=== PATIENT | female | born 1935 | race Caucasian/White ===

== ENCOUNTER → 2020-12-17 | Outpatient (CLI) | payer MEDICARE ==
--- NOTE | 2020-12-17 10:44 | RAD ---
PA and lateral views of the chest. Comparison: None. Indication: Increasing shortness of breath Findings: Sternotomy wires and CABG clips are identified. The heart size is enlarged but stable. Small bibasila r effusions with some pseudotumor appearing fluid on the right minor fissure. There is pulmonary vasc ular congestion. Degenerative changes identified with a vertebral plana deformity of a lower thoracic vertebral body. Impression: 1. Findings suggest CHF. Electronically signed by: Michael Serra MD (12/17/2020 10:42 AM) [id number]
--- NOTE | 2020-12-17 13:38 | RAD ---
AP pelvis to include AP and lateral radiographs of the left hip 09/18/2020 CLINICAL HISTORY: Left hip pain. AP digital radiograph of the pelvis and both hips was obtained. AP and lateral digital radiographs le ft hip were obtained. There is diffuse osteopenia the visualized bony structures. No pelvic bone frac ture is seen. Both hips are intact. Specifically no fracture or dislocation of the left hip is seen. Mild to moderate degenerative changes are seen involving both hips. Mild to moderate degenerative francine nges are seen involving both SI joints. Calcifications are seen within the pelvis consistent with phl eboliths. IMPRESSION: Degenerative changes are seen as discussed above. No acute osseous abnormality is identif ied. Electronically signed by: Garret Dickerson MD (12/17/2020 1:36 PM) [id number]
== END ==
LOC: RAD 09:44
PROVIDERS: ATTEND Physician Assistant
DX: M16.0 Bilateral primary osteoarthritis of hip (principal); M46.1 Sacroiliitis, not elsewhere classified; M85.88 Other specified disorders of bone density and structure, other site; R06.02 Shortness of breath; I51.7 Cardiomegaly; R09.89 Other specified symptoms and signs involving the circulatory and respiratory systems; M43.8X4 Other specified deforming dorsopathies, thoracic region; M47.814 Spondylosis without myelopathy or radiculopathy, thoracic region
CPT/HCPCS: 71046; 73502

== ENCOUNTER 2020-12-18 08:15 | Emergency (ER) | payer MEDICARE ==
[~2020-12-18] VITALS: Ht 152.4 cm; Wt 75.6 kg
--- NOTE | 2020-12-18 08:19 | PHYS DOC ---
Past History Past Medical History: GERD, High Cholesterol, Heart Disease, Hypothyroid, Other (Osteoporosis) Adult General Chief Complaint Chief Complaint: SHORTNESS OF BREATH HPI HPI Patient is an 85-year-old female who presents from home via POV for shortness of breath. This is an acute on chronic issue. She is typically on 4 L nasal cannula daily, states she has had no increased oxygen requirements at home but feels she is more short of breath with exertion which is new for her. This has been worsening gradually over past 1 week without any known inciting event, trauma or ingestion. Patient cites that she has to stop several times to catch her breath when ambulating from living room to bathroom which is unusual for her. No fever, lightheadedness, chest pain, productive cough, abdominal pain, urinary symptoms, changes in motor or sensory function, no neurologic deficits reported. She has a right sided pigtail chest tube in place, states it has been there for "a while". It is not been drained" several weeks". She is unsure what the source of her recurrent pleural effusion is. She recently relocated to our area from [place] to live with her son. Son and qbbnuxcn-va-iux accompany her today, states she recently establish care with a local primary care provider but have yet to establish with local cardiology and pulmonology services. They are unsure of entire past medical history. 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 They do bring her medication list, it appears patient is being treated for high blood pressure, high cholesterol, she is on 75 mg clopidogrel daily Review of Systems Review of Systems Fourteen body systems of review of systems have been reviewed. See HPI for pertinent positives and negative responses, other laguna all other systems are negative, non-pertinent or non-contributory Physical Exam Physical Exam Constitutional: Well developed, well nourished, no acute distress, non-toxic appearance. HENT: Normocephalic, atraumatic, bilateral external ears normal, oropharynx moist, no oral exudates, nose normal. Eyes: PERRLA, EOMI, conjunctiva normal, no discharge. Neck: Normal range of motion, no tenderness, supple, no stridor. Cardiovascular: Heart rate regular, sinus rhythm, no murmurs rubs or gallops Lungs & Thorax: Bilateral breath sounds clear to auscultation Abdomen: Bowel sounds normal, soft, no tenderness, no masses, no pulsatile masses. Nonsurgical abdomen, no peritoneal signs Skin: Warm, dry, no erythema, no rash. Back: No tenderness, no CVA tenderness. Extremities: No tenderness, no cyanosis, no clubbing, ROM intact, no edema. Neurologic: Alert and oriented X 3, grossly normal motor & sensory function, no focal deficits noted. Psychologic: Affect normal, judgement normal, mood normal. Current Patient Data Lab Results Laboratory Tests Test 12/18/20 08:45 White Blood Count 10.0 x10^3/uL Red Blood Count 3.01 x10^6/uL Hemoglobin 7.9 g/dL Hematocrit 25.3 % Mean Corpuscular Volume 84 fL Mean Corpuscular Hemoglobin 26 pg Mean Corpuscular Hemoglobin Concent 31 g/dL Red Cell Distribution Width 18.4 % Platelet Count 221 x10^3/uL Neutrophils (%) (Auto) 84 % Lymphocytes (%) (Auto) 6 % Monocytes (%) (Auto) 8 % Eosinophils (%) (Auto) 2 % Basophils (%) (Auto) 1 % Neutrophils # (Auto) 8.4 x10^3uL Lymphocytes # (Auto) 0.6 x10^3/uL Monocytes # (Auto) 0.8 x10^3/uL Eosinophils # (Auto) 0.2 x10^3/uL Basophils # (Auto) 0.1 x10^3/uL Sodium Level 146 mmol/L Potassium Level 3.9 mmol/L Chloride Level 106 mmol/L Carbon Dioxide Level 32 mmol/L Anion Gap 8 Blood Urea Nitrogen 20 mg/dL Creatinine 1.1 mg/dL Estimated GFR (Cockcroft-Gault) 47.4 Glucose Level 177 mg/dL Calcium Level 8.5 mg/dL Troponin I Quantitative < 0.017 ng/mL KB-Hzb-M-Type Natriuretic Peptide 6129 pg/mL Current Medications Medications (Trade) Dose Ordered Sig/Eliz Route PRN Reason Start Time Stop Time Status Last Admin Dose Admin Aspirin (Aspirin Chewable) 162 mg 1X ONCE PO 12/18/20 08:45 12/18/20 09:08 DC 12/18/20 09:14 EKG EKG EKG ordered and interpreted by myself at 0830 hrs. as sinus rhythm at 68 bpm, prolonged SC interval at 240, prolonged QT at 470 and prolonged QTC at 505, no axis deviation, no STEMI Radiology/Procedures Radiology/Procedures EXAM: XR CHEST 1V 12/18/2020 8:44 AM CLINICAL INDICATION: Shortness of breath, chronic right chest tube COMPARISON: Chest radiograph 12/17/2020 TECHNIQUE: AP view of the chest FINDINGS: A right chest tube is unchanged. Median sternotomy wires are redemonstrated. The cardiac silhouette is unchanged. The central vascularity is engorged. Small right greater than left pleural fusions and pulmonary opacities are unchanged. There is a 2.2 cm nodule in the mid right lung, unchanged. No pneumothorax. IMPRESSION: 1. Unchanged pulmonary edema and right greater than left pleural effusions. 2. Unchanged 2.2 cm nodule in the mid right lung. If this has not been previously evaluated, recommend CT to further evaluate. Electronically signed by: Adriane Mejias MD (12/18/2020 9:06 AM) [id number] Heart Score C/O Chest Pain: No HEART Score for Chest Pain: HEART Score for Chest Pain Response (Comments) Value History Slighlty/Non-Suspicious 0 ECG Nonspecific Repolarizatio 1 Age > 65 2 Risk Factors >3 Risk Factors or Hx CAD 2 Troponin < Normal Limit 0 Total 5 Risk Factors: Risk Factors: DM, Current or recent (<one month) smoker, HTN, HLP, family history of CAD, obesity. Risk Scores: Risk Factors: DM, Current or recent (<one month) smoker, HTN, HLP, family history of CAD, obesity. Course & Med Decision Making Course & Med Decision Making Patient hemodynamically stable and saturating well on typical 4 L nasal cannula but has history of increased air hunger. Physical exam grossly nonconcerning Comprehensive ER work-up obtained, no emergent nor surgical pathology present; however, patient does have significant bilateral pleural effusions with right being greater than left I discussed with patient, son and [id number]-[id number]-byi at bedside potential of draining already existing right-sided chest tube with close discharge home. Nonetheless, patient just moved from [place] and was recently established with PCP, has not seen cardiology nor pulmonology services in outpatient setting yet In addition, none of them are knowledgeable on cause of ongoing pleural effusions. Patient has complicated medical history, it was recommended that she be transferred to [facility] for admission for pulmonology consultation and drainage of pleural effusions Patient, son and uqwplthh-sz-pek all agreeable on proposed plan of care. Dr. Salas, hospitalist at [facility] contacted and case discussed, he agreed need for transfer accepted patient under his care All questions and concerns addressed with patient and family members in ER prior to EMS transport to [facility] for hospital admission Critical Care Time This patient required critical care. Due to the fact that the patient required a significant amount of one on one physician - patient contact time, ordering and review of studies, arranging urgent treatment with development of a management plan, evaluation of patients response to treatment with frequent reassessments, and discussions with other providers this patient required 35 minutes of critical care time. Critical care time was indicated due to the inherent instab ility and/or potential for instability in this patient. The critical care time that is allocated to this patient is above and beyond any time spent on any other billable procedures performed on this patient. Dragon Disclaimer Dragon Disclaimer This electronic medical record was generated, in whole or in part, using a voice recognition dictation system. Departure Departure: Impression: Primary Impression: Bilateral pleural effusion Additional Impression: Normocytic anemia Disposition: 02 DC/TRF OTHER SHORT TERM HOS Admitting Physician: Other (dr salas) Condition: STABLE Referrals: NASRIN JANE PAC (PCP) Problem Qualifiers DANTE LOZANO DO Dec 18, 2020 08:19
[2020-12-18] MEDS ORDERED: ASPIRIN CHEWABLE 81 MG TABLET. PO ONE (08:45)
--- NOTE | 2020-12-18 09:08 | RAD ---
EXAM: XR CHEST 1V 12/18/2020 8:44 AM CLINICAL INDICATION: Shortness of breath, chronic right chest tube COMPARISON: Chest radiograph 12/17/2020 TECHNIQUE: AP view of the chest FINDINGS: A right chest tube is unchanged. Median sternotomy wires are redemonstrated. The cardiac s ilhouette is unchanged. The central vascularity is engorged. Small right greater than left pleural fu sions and pulmonary opacities are unchanged. There is a 2.2 cm nodule in the mid right lung, unchange d. No pneumothorax. IMPRESSION: 1. Unchanged pulmonary edema and right greater than left pleural effusions. 2. Unchanged 2.2 cm nodule in the mid right lung. If this has not been previously evaluated, recommen d CT to further evaluate. Electronically signed by: Adriane Mejias MD (12/18/2020 9:06 AM) [id number]
[2020-12-18 09:16] LABS: CALCIUM 8.5 mg/dL (8.5-10.1); CREATININE 1.1 mg/dL (0.6-1.0); GFR 47.4; POTASSIUM 3.9 mmol/L (3.5-5.1)
[2020-12-18 09:22] LABS: BASO # 0.1 x10^3/uL (0.0-0.2); BASO % 1 % (0-3); EOS # 0.2 x10^3/uL (0.0-0.7); EOS % 2 % (0-3); HEMATOCRIT 25.3 % (36.0-47.0); HEMOGLOBIN 7.9 g/dL (12.0-15.5); LYMPH # 0.6 x10^3/uL (1.0-4.8); LYMPH % 6 % (24-48); MEAN CORPUSCULAR HEMOGLOBIN 26 pg (25-35); MEAN CORPUSCULAR HGB CONC 31 g/dL (31-37); MEAN CORPUSCULAR VOLUME 84 fL (79-100); MONO # 0.8 x10^3/uL (0.0-1.1); MONO % 8 % (0-9); NEUT # 8.4 x10^3uL (1.8-7.7); NEUT % 84 % (31-73); PLATELET COUNT 221 x10^3/uL (140-400); RED BLOOD COUNT 3.01 x10^6/uL (3.50-5.40); RED CELL DISTRIBUTION WIDTH 18.4 % (11.5-14.5)
[2020-12-18 10:52] VITALS: BP 118/42
--- NOTE | 2020-12-18 14:05 | EKG ---
[address] [address] Test Date: 2020-12-18 Test Time: 08:27:39 Pat Name: MARK PRYOR Department: Room: Gender: F Master Electrician: SRUTHI : 1935 Requested By: DANTE LOZANO Order Number: [id number] Reading MD: Measurements Intervals [place] Rate: 68 P: 0 WV: 240 QRS: 17 QRSD: 90 T: 15 QT: 470 QTc: 505 Interpretive Statements SINUS RHYTHM PROLONGED WV INTERVAL LOW LIMB LEAD VOLTAGE T ABNORMALITY IN ANTERIOR LEADS PROLONGED QT ABNORMAL ECG RI6.02 No previous ECG available for comparison
== END 2020-12-18 11:10 | disposition short-term general hospital (02) ==
LOC: ER 08:15
DX: J90 Pleural effusion, not elsewhere classified (principal); D64.9 Anemia, unspecified; K21.9 Gastro-esophageal reflux disease without esophagitis; E78.00 Pure hypercholesterolemia, unspecified; E03.9 Hypothyroidism, unspecified
CPT/HCPCS: 36415; 71045; 80048; 83880; 84484; 85025; 93005; 99285

== ENCOUNTER → 2021-04-20 | Outpatient (CLI) | payer MEDICARE ==
--- NOTE | 2021-04-20 15:07 | RAD ---
XR CHEST 2V History: Reason: CHRONIC RESPIRATORY FAILURE, ? HYPOXIA VS. HYPERCAPNIA / Spl. Instructions: / Histo ry: Comparison: December 18, 2020 Findings: Decreased right midlung nodular opacity compatible with fluid in the major fissure. Mild diffuse inte rstitial thickening with perihilar opacities and patchy bibasilar opacities. Small bilateral pleural effusions, right greater than left. Loculated component of the pleural effusion on the right. Enlarge d cardiac size, unchanged. Prior mid sternotomy. No pneumothorax. Impression: 1. Mild diffuse interstitial thickening with ill-defined opacities, may represent pulmonary edema an d a component of chronic interstitial changes is possible. 2. Bilateral pleural effusions with loculated component on the right, similar compared to prior. 3. Decreased nodular opacity projecting over the right midlung related to fluid in the major fissure . 4. Cardiomegaly, unchanged. Electronically signed by: Juvenal Krishnan DO (04/20/2021 3:05 PM) [id number]
== END ==
LOC: RAD 10:38
PROVIDERS: ATTEND Family Medicine
DX: I51.7 Cardiomegaly (principal); J90 Pleural effusion, not elsewhere classified; J96.10 Chronic respiratory failure, unspecified whether with hypoxia or hypercapnia
CPT/HCPCS: 71046

== ENCOUNTER 2021-12-21 14:47 | Emergency (ER) | payer MEDICARE ==
[~2021-12-21] VITALS: Ht 152.4 cm; Wt 76.3 kg
--- NOTE | 2021-12-21 14:52 | PHYS DOC ---
Past History Past Medical History: CHF, COPD, GERD, High Cholesterol, Heart Disease, Hypothyroid, Other Additional Past Medical Histor: HLD Past Medical History Pleural effusions Additional Past Surgical Histo: chest tube placement Smoking: Quit Greater Than 1 Year Alcohol Use: None Drug Use: None General Adult EDM: Chief Complaint: SHORTNESS OF BREATH HPI: HPI: Patient is an 86-year-old female who comes in by EMS, from home, with respiratory distress. She reportedly became acutely dyspneic today. She was noted to be quite hypoxic on room air on arrival. They tried to place her on CPAP, she refused and would not cooperate with the mask. EMS placed on a nonrebreather and gave a DuoNeb, which is finishing on arrival. The patient has a laminated DNR/DNI advanced directive that accompanies her here. However, the patient reports that she wants "everything done" on arrival in the ER. The patient reports "I cannot breathe" and "Please help me." I spoke with the patient's son, after the patient was resuscitated in the ER, and he reports that she was "just fine" last night while watching TV. The patient has a history of congestive heart failure as well as COPD. She has previously been seen here in this ER and was emergently transferred to [facility] for acute on chronic hypoxic respiratory failure, pleural effusions, heart failure and COPD. She has seen cardiology and pulmonology services there. The patient reportedly wears 4 L per nasal cannula at all times. She is a former smoker. I am unsure when she quit smoking. No reported recent sick contacts or travel history. No recent hospitalizations reported. No reported vomiting or diarrhea, per the son. The remainder of review of systems is markedly limited secondary to patient's clinical condition. Upon review of previous records it does appear that the patient is a quite poor historian at baseline. Review of Systems: Review of Systems: Review of systems is markedly limited secondary to clinical condition. Allergies: Allergies: Allergies Coded Allergies Type Severity Reaction Last Updated Verified No Known Drug Allergies 12/18/20 No Physical Exam: PE: Constitutional: Frail, chronically ill-appearing, manifests evidence of acute respiratory distress and respiratory failure. She is acutely ill-appearing HENT: Normocephalic, atraumatic, oropharynx is patent and clear, mucous membran es are tacky. Eyes: Conjunctive are normal, sclera anicteric Neck: Trachea is midline. +JVD. Cardiovascular: Tachycardic, low 100s, intermittently irregular, +2 dorsalis pedis pulses, +2 femoral pulses, +2 radial pulses Lungs & Thorax: Marked tachypnea, intercostal and supraclavicular retractions are noted, she presents in the tripod position, unable to speak in more than 1 or 2 word phrases, pallor and diaphoresis noted, significant respiratory distress. Bibasilar rales and diminished breath sounds in bilateral bases noted. No obvious wheezing noted. Occasional rhonchi noted. No stridor. Abdomen: Abdomen is soft, nondistended, no apparent tenderness to palpation. No palpable pulsatile mass. No evidence of abdominal or flank trauma. Skin: Warm, mildly diaphoretic, diffuse pallor noted. No jaundice. Back: No acute deformity noted. Extremities: Bilateral 1+ lower extremity edema noted. No acute limb deformity is noted. Neurologic: She is awake, alert, unable to assess orientation, she does wildly flail all 4 extremities equally, appears to have grossly normal motor function, sensation is grossly intact, gag reflex intact, speech is limited secondary to respiratory distress, no facial asymmetry is noted Psychologic: She is extremely anxious EKG: EKG: EKG is interpreted at 1520 Rhythm is irregularly irregular, atrial fibrillation Rate is 110 bpm Dalton is left low voltage marked artifact No obvious STEMI Radiology/Procedures: Radiology/Procedures: IMAGING REPORT Signed PATIENT: MARK PRYOR ACCOUNT: [id number] : 1935 LOCATION: ER AGE: 86 SEX: F EXAM STATUS: REG ER ORD. PHYSICIAN: LUCIO SOLOMON DO REASON: dyspnea, resp failure PROCEDURE: PORTABLE CHEST 1V AP chest. HISTORY: Dyspnea, respiratory failure AP view was taken of the chest. Heart is enlarged. There are small bilateral pleural effusions. There is pulmonary vascular congestion. Haziness in the lungs suggest pulmonary edema although atypical pneumonia would be possible. There has been mild worsening compared to the study from April 2021. The patient had a a previous sternotomy. IMPRESSION: 1. Congestive heart failure with pulmonary edema. Electronically signed by: Yousif Tan MD (12/21/2021 3:27 PM) [facility] DICTATED AND SIGNED BY: YOUSIF TAN MD DATE: 12/21/21 1526 CC: LUCIO SOLOMON DO; NASRIN JANE PAC ~ Heart Score: C/O Chest Pain: N/A Risk Factors: Risk Factors: DM, Current or recent (<one month) smoker, HTN, HLP, family history of CAD, obesity. Risk Scores: Score 0 - 3: 2.5% MACE over next 6 weeks - Discharge Home Score 4 - 6: 20.3% MACE over next 6 weeks - Admit for Clinical Observation Score 7 - 10: 72.7% MACE over next 6 weeks - Early Invasive Strategies Course & Med Decision Making: Course & Med Decision Making Pertinent Labs and Imaging studies reviewed. (See chart for details) The patient is transition from nonrebreather to BiPAP. She is given Ativan to help with anxiety. She ultimately tolerated BiPAP very well. The nursing staff and I established peripheral IVs. IV Lasix is given, secondary to significant pulmonary edema noted on chest x-ray. Her initial ABG did not appear to be as significantly abnormal as her clinical physical exam and presentation would have indicated. I am unsure if the patient has a history of dietary or medication noncompliance. Her son is not able to articulate information about this. He does confirm that he is her power of divorce attorney, and she has a signed DNR and DNI. I have explained that I recommend hospitalization, but she will need to be transferred to [facility] for a higher level of care, cardiology services and pulmonology services. He is comfortable with this. I explained this to the patient as well. The patient is accepted for admission by Dr. Salas at [facility]. Also, I ordered a Coello catheter, urinalysis, UA is pending at time of acceptance of admission. Initial lactate was quite elevated, though I wonder if this might possibly be hemolyzed, secondary to the initial chemistry specimens also being hemolyzed. Large fluid boluses would be contraindicated in her clinical condition, thus aggressive fluid resuscitation will be avoided at this time. 500 mL normal saline bolus is ordered. Dragon Disclaimer: Dragon Disclaimer: This electronic medical record was generated, in whole or in part, using a voice recognition dictation system. Departure Departure: Impression: Primary Impression: Acute on chronic respiratory failure with hypoxia Additional Impressions: Acute exacerbation of congestive heart failure Qualified Codes: I50.9 - Heart failure, unspecified COPD (chronic obstructive pulmonary disease) Qualified Codes: J44.9 - Chronic obstructive pulmonary disease, unspecified Lactic acidosis Admitting Physician: Other (Dr. Salas) Condition: GUARDED Referrals: NASRIN JANE PAC (PCP) Critical Care Note Total Time (mins): 90 Comments Critical care time included resuscitation of hypoxic respiratory failure, BiPAP monitoring, multiple serial physical exams, multiple discussions with patient and family. I personally performed ultrasound-guided peripheral IV placement in the right AC. I personally obtained blood work for laboratory exams. LUCIO SOLOMON DO Dec 21, 2021 14:52
[2021-12-21] MEDS ORDERED: methylPREDNISolone SOD SUCC PF 125 MG/2 ML VIAL. IV ONE (15:00)
--- NOTE | 2021-12-21 15:30 | RAD ---
AP chest. HISTORY: Dyspnea, respiratory failure AP view was taken of the chest. Heart is enlarged. There are small bilateral pleural effusions. There is pulmonary vascular congestion. Haziness in the lungs suggest pulmonary edema although atypical pn eumonia would be possible. There has been mild worsening compared to the study from April 2021. The patient had a a previous sternotomy. IMPRESSION: 1. Congestive heart failure with pulmonary edema. Electronically signed by: Yousif Tan MD (12/21/2021 3:27 PM) [facility]
[2021-12-21 15:39] LABS: BGAS PH 7.4 (7.35-7.45)
[2021-12-21] MEDS ORDERED: FUROSEMIDE 40 MG/4 ML VIAL IVP ONE (15:45)
[2021-12-21] MEDS ORDERED: FUROSEMIDE 40 MG/4 ML VIAL ONE (15:50)
--- NOTE | 2021-12-21 16:15 | EKG ---
[address] [address] Test Date: 2021-12-21 Test Time: 15:20:23 Pat Name: MARK PRYOR Department: Room: Gender: F Entertainment Director: SRUTHI : 1935 Requested By: LUCIO SOLOMON Order Number: [id number] Reading MD: Krunal Hawkins Measurements Intervals [place] Rate: 110 P: MN: QRS: 11 QRSD: 112 T: 19 QT: 344 QTc: 471 Interpretive Statements BASELINE ARTIFACT, PROBABLE ATRIAL FIBRILLATION VENTRICULAR PREMATURE COMPLEX(ES) LOW LIMB LEAD VOLTAGE ABNORMAL ECG Electronically Signed On 12-23-2021 13:26:43 CDT by Krunal Hawkins
[2021-12-21 16:32] LABS: CALCIUM 8.9 mg/dL (8.5-10.1); CREATININE 1.4 mg/dL (0.6-1.0); GFR 35.8
[2021-12-21 16:45] LABS: ALBUMIN 3.5 g/dL (3.4-5.0); ALBUMIN/GLOBULIN RATIO 1.1 (1.0-1.7); POTASSIUM 5.4 mmol/L (3.5-5.1); TOTAL BILIRUBIN 1.7 mg/dL (0.2-1.0); TOTAL PROTEIN 6.8 g/dL (6.4-8.2)
[2021-12-21 16:56] LABS: BASO % 0 % (0-3); EOS % 0 % (0-3); HEMATOCRIT 38.8 % (36.0-47.0); HEMOGLOBIN 12.2 g/dL (12.0-15.5); LYMPH # 0.6 x10^3/uL (1.0-4.8); LYMPH % 5 % (24-48); MEAN CORPUSCULAR HEMOGLOBIN 28 pg (25-35); MEAN CORPUSCULAR HGB CONC 31 g/dL (31-37); MEAN CORPUSCULAR VOLUME 90 fL (79-100); MONO # 0.7 x10^3/uL (0.0-1.1); MONO % 7 % (0-9); NEUT # 9.7 x10^3uL (1.8-7.7); NEUT % 88 % (31-73); PLATELET COUNT 310 x10^3/uL (140-400); RED BLOOD COUNT 4.31 x10^6/uL (3.50-5.40); RED CELL DISTRIBUTION WIDTH 18.5 % (11.5-14.5)
[2021-12-21 17:57] LABS: CLARITY,URINE CLEAR; COLOR,URINE YELLOW; GLUCOSE,URINE NEG (NEG); NITRITE,URINE NEG (NEG); UROBILINOGEN,URINE 0.2 mg/dL (0.2 mg/dL)
[2021-12-21 17:58] LABS: BACTERIA,URINE MANY /HPF (0-FEW); RBC,URINE 0 /HPF (0-2); WBC,URINE 20-40 /HPF (0-4)
[2021-12-21] MEDS ORDERED: IV NORMAL SALINE 500ML 500 ML IV ONE (18:00)
[2021-12-21 19:40] VITALS: BP 131/70
== END 2021-12-21 19:45 | disposition short-term general hospital (02) ==
LOC: ER 14:47
DX: J96.21 Acute and chronic respiratory failure with hypoxia (principal); I50.9 Heart failure, unspecified; J44.9 Chronic obstructive pulmonary disease, unspecified; E87.2 Acidosis; K21.9 Gastro-esophageal reflux disease without esophagitis; E78.00 Pure hypercholesterolemia, unspecified; E03.9 Hypothyroidism, unspecified; Z87.891 Personal history of nicotine dependence
CPT/HCPCS: 36415; 51702; 71045; 80053; 81001; 82803; 83605; 83880; 84484; 85025; 87040; 87086; 93005; 94660; 96361; 96374; 96375; 96376; 99291; 99292; J1940; J2060; J2930; J7040; 87077; 87186